=== PATIENT | male | born 1975 | race Caucasian/White ===

== ENCOUNTER 2020-08-24 15:28 | Emergency (ER) | payer OTHER ==
[2020-08-24 15:58] LABS: HEMOGLOBIN 13.7 gm/dl (14.0-17.5); RED BLOOD COUNT 4.34 M/UL (4.20-5.50); WHITE BLOOD COUNT 2.6 K/UL (4.5-11.0)
[2020-08-24 16:36] LABS: BUN/CREATININE RATIO 10 (0-10)
== END 2020-08-24 18:24 | disposition home or self-care (01) ==
LOC: ER1 15:28
PROVIDERS: Emergency Medicine
DX: D69.6 Thrombocytopenia, unspecified (principal); D72.819 Decreased white blood cell count, unspecified; E80.6 Other disorders of bilirubin metabolism
CPT/HCPCS: 70450; 71045; 80053; 81001; 82550; 82553; 83874; 83880; 84484; 85025; 93005; 99285

== ENCOUNTER → 2020-08-26 | Outpatient (CLI) | payer OTHER | LOC: US 10:00 → KOH-I 10:00 → US 10:11 | DX: K76.0 Fatty (change of) liver, not elsewhere classified (principal); K82.8 Other specified diseases of gallbladder | CPT/HCPCS: 76705 ==